=== PATIENT | male | born 1980 | race Caucasian/White ===

== ENCOUNTER → 2016-09-28 | Outpatient (CLI) | payer OTHER | END | disposition home or self-care (01) | LOC: PETCFH 08:25 | PROVIDERS: ATTEND Family Medicine | DX: Z02.9 Encounter for administrative examinations, unspecified (principal) ==

== ENCOUNTER → 2018-09-20 | Outpatient (CLI) | payer OTHER | END | disposition home or self-care (01) | LOC: CVU 08:03 | PROVIDERS: ATTEND Internal Medicine Cardiovascular Disease | DX: R06.02 Shortness of breath (principal) | CPT/HCPCS: 93306 ==